=== PATIENT | female | born 1960 | race Hispanic/Latino ===

== ENCOUNTER → 2020-06-22 | Outpatient (CLI) | payer OTHER | END | disposition home or self-care (01) | LOC: RAH 13:38 | PROVIDERS: ATTEND Internal Medicine | DX: Z13.6 Encounter for screening for cardiovascular disorders (principal) | CPT/HCPCS: 75571 ==

== ENCOUNTER 2021-12-06 06:46 | Day surgery (SDC) | payer OTHER ==
[2021-12-04 10:02] LABS: BASOPHILS % (AUTO) 0.8 % (0.0-5.0); EOSINOPHILS % (AUTO) 1.2 % (0.0-8.0); HEMATOCRIT 38.3 % (36-48); LYMPHOCYTES % (AUTO) 34.5 % (21.0-51.0); MEAN CORPUSCULAR HEMOGLOBIN 31.1 pg (27.0-33.0); MEAN CORPUSCULAR HGB CONC 32.4 g/dL (32.0-36.0); MONOCYTES % (AUTO) 6.1 % (3.0-13.0); NEUTROPHILS % (AUTO) 57.2 % (40.0-77.0); PLATELET COUNT (AUTO) 262 K/uL (130-400); RED BLOOD CELL COUNT(AUTO) 3.99 MIL/uL (4.00-5.50); RED CELL DISTRIBUTION WIDTH 12.9 % (11.0-15.5)
[2021-12-04 10:30] LABS: CREATININE 0.8 mg/dL (0.5-1.5); POTASSIUM 5.4 mmol/L (3.5-5.1)
[2021-12-05 11:14] VITALS: BP 138/66
[2021-12-06] VITALS (15 sets, daily range): BP systolic 113–155; BP diastolic 59–80
[~2021-12-06] VITALS: Ht 170.2 cm; Wt 73.8 kg
[2021-12-06] MEDS: CEFAZOLIN SODIUM 1 GM VIAL IVP SCH ×2 (05:00→08:32)
[~2021-12-06 06:46] MED LIST: ACET-2079 PO; CALC-1125 PO; FISH1CAP63 PO; IBUP-2070 PO; MAGN400C PO; POTA99CA PO; VITA100C27 PO; VITAMIN D3 PO; ZINC220T4 PO
[2021-12-06] MEDS ORDERED: LACTATED RINGERS 1000ML 1,000 ML IV ONE (07:05)
[2021-12-06] MEDS ORDERED: ONDANSETRON 4MG INJ ONE ×2 (07:14→08:57)
[2021-12-06] MEDS ORDERED: SUCCINYLCHOLINE CHLORIDE 20 MG/ML 10 ML VIAL ONE (07:14)
[2021-12-06] MEDS ORDERED: SUCCINYLCHOLINE 200MG/10ML SYR ONE (07:14)
[2021-12-06] MEDS ORDERED: LIDOCAINE PF 100MG/5ML (2%) SYRINGE 5ML ONE (07:14)
[2021-12-06] MEDS ORDERED: DEXAMETHASONE SOD PHOSPHATE 10MG/ML 1ML VIAL ONE (07:15)
[2021-12-06] MEDS ORDERED: GLYCOPYRROLATE 1 MG/5 ML SYRINGE ONE (07:15)
[2021-12-06] MEDS ORDERED: PROPOFOL 10 MG/ML 20ML VIAL IV ONE (07:15)
[2021-12-06] MEDS ORDERED: NEOSTIGMINE 5MG/5ML SYR IV ONE (07:15)
[2021-12-06] MEDS ORDERED: MIDAZOLAM HCL 1 MG/ML 2ML VIAL ONE (07:15)
[2021-12-06] MEDS ORDERED: ROCURONIUM 10MG/1ML SYR 10 MG/ML ML ONE (07:16)
[2021-12-06] MEDS ORDERED: FENTANYL CITRATE PF 50 MCG/1 ML 2ML VIAL ONE ×2 (07:16→08:55)
[2021-12-06] MEDS ORDERED: CEPH500B PO (09:42)
[2021-12-06] MEDS ORDERED: ACET-2079 PO (09:42)
[2021-12-06] MEDS ORDERED: IBUP-2070 PO (09:42)
[2021-12-06] MEDS ORDERED: MEPERIDINE-PF 25 MG/ML SYG ONE ×2 (09:45→09:53)
== END 2021-12-06 11:10 | disposition home or self-care (01) ==
LOC: DAH 06:46
PROVIDERS: ATTEND Orthopaedic Surgery
DX: S83.242A Other tear of medial meniscus, current injury, left knee, initial encounter (principal); M94.262 Chondromalacia, left knee; S80.02XA Contusion of left knee, initial encounter; G89.29 Other chronic pain; E78.5 Hyperlipidemia, unspecified; M62.559 Muscle wasting and atrophy, not elsewhere classified, unspecified thigh; Z98.890 Other specified postprocedural states; Z82.49 Family history of ischemic heart disease and other diseases of the circulatory system; V80.010A Animal-rider injured by fall from or being thrown from horse in noncollision accident, initial encounter; Y93.89 Activity, other specified; Y92.89 Other specified places as the place of occurrence of the external cause
CPT/HCPCS: 80048; 85025; 87426; 36415 ×2; 29877; 84132; A4663; J7120 ×2; A4649; J3010 ×2; J0690; J0330 ×2; J3490; J1100; J2710; J2001; J2250; J2704; J2405 ×2; J2175 ×2; A6223; A4215; A4223; A4222; A4221; A6450

== ENCOUNTER → 2023-10-28 | Outpatient (CLI) | payer OTHER ==
[~2023-10-28] MED LIST changes: +CEPH500B PO; +IOHEXOL 350 MG/ML 100ML INFUS..BTL IV ONE; -POTA99CA PO
== END | disposition home or self-care (01) ==
LOC: RAH 08:37
PROVIDERS: ATTEND Internal Medicine
DX: Z13.6 Encounter for screening for cardiovascular disorders (principal); R06.02 Shortness of breath; R07.89 Other chest pain
CPT/HCPCS: 75574; Q9967

== ENCOUNTER → 2024-12-17 | Outpatient (CLI) | payer OTHER ==
[~2024-12-17] MED LIST changes: +IBUP-1492 PO; -IBUP-2070 PO; -IOHEXOL 350 MG/ML 100ML INFUS..BTL IV ONE
--- NOTE | 2024-12-17 15:05 | HMCIMG ---
LUMBAR SPINE RADIOGRAPHS - 2-3 VIEWS INDICATION: Back pain COMPARISON: None FINDINGS: AP, lateral, and coned-down lateral views. This mild levoscoliosis of the lumbar spine with the apex at L3.. Five nonrib-bearing lumbar vertebral bodies are noted. No acute fracture or subluxation identified. Vertebral body heights are well-maintained. The flexion-extension radiograph demonstrated no evidence of malalignment. Disc spaces at L4-L5 and L5-S1 appears to be narrowed. The remaining intervertebral disc spaces are intact. There are surgical clips in the right upper quadrant from prior cholecystectomy. IMPRESSION: No fracture or subluxation identified. Disc disease with loss of disc height of lower lumbar spine Mild levoscoliosis.
--- NOTE | 2024-12-17 15:16 | HMCIMG ---
CERVICAL SPINE RADIOGRAPHS - 5 VIEWS INDICATION: Pain COMPARISON: None FINDINGS: AP, lateral, and odontoid views. Normal lordosis is maintained. No acute fracture or malalignment identified. The flexion and extension radiograph demonstrated no evidence of malalignment. There is hypolordosis cervical spine suggesting a muscle spasm. Prevertebral soft tissues are not swollen. The atlanto-dens interval is within normal limits for patient's age. Spot view of the odontoid is without evidence for fracture. Vertebral body heights are within normal limits. Disc heights are well preserved Visible lung apices are clear. IMPRESSION: No acute fracture or subluxation identified.
--- NOTE | 2024-12-17 15:17 | HMCIMG ---
Bilateral hip x-rays with pelvis, 5 films. CLINICAL INDICATION: Pain left hip FINDINGS: Mild osteopenia.. There is no evidence of fracture or dislocation. Joint space intervals are preserved and the sacroiliac joints are intact. No destructive lesions are seen. Surrounding soft tissues are within normal limits. IMPRESSION: No evidence of pelvic or hip fracture.
--- NOTE | 2024-12-17 15:18 | HMCIMG ---
KNEE BILATERAL STANDING REASON: PAIN IN RIGHT KNEE TECHNIQUE: 2 views were obtained. FINDINGS: There is no evidence of fracture or dislocation. There is no joint effusion. The soft tissues appear unremarkable. There is no evidence of a radiopaque foreign body. IMPRESSION: No acute findings.
== END | disposition home or self-care (01) ==
LOC: RAH 13:44
PROVIDERS: ATTEND Physical Medicine & Rehabilitation
DX: M51.16 Intervertebral disc disorders with radiculopathy, lumbar region (principal); M41.86 Other forms of scoliosis, lumbar region; M85.88 Other specified disorders of bone density and structure, other site; M25.552 Pain in left hip; M25.561 Pain in right knee; M54.51 Vertebrogenic low back pain; M54.2 Cervicalgia; Z96.89 Presence of other specified functional implants
CPT/HCPCS: 72050; 72114; 73521; 73565; 73560